=== PATIENT | female | born 1970 ===

== ENCOUNTER 2020-09-25 12:52 | Outpatient (CLI) | payer OTHER ==
--- NOTE | 2020-09-25 14:10 | XRAY Report ---
PROCEDURE: Ankle 3 View LT INDICATIONS: Left ankle joint pain TECHNIQUE: 3 views of the ankle were acquired. COMPARISON: None FINDINGS: Bones: No fracture or dislocation. Ankle mortise is normally aligned. Joint space is maintained and t he ankle. No suspicious lytic or blastic osseous lesion.. Soft tissues: No tibiotalar joint effusion. Achilles tendon appears normal. IMPRESSION: No acute or significant finding to explain pain. MRI may be helpful for further evaluati on. Reviewed by: Jefferson Doe MD on 09/25/2020 2:09 PM PDT Approved by: Jefferson Doe MD on 09/25/2020 2:09 PM PDT Station ID: [id number]
== END 2020-09-25 12:53 | disposition home or self-care (01) ==
LOC: DI.N 12:52
PROVIDERS: ATTEND Physician Assistant
DX: M25.572 Pain in left ankle and joints of left foot (principal)

== ENCOUNTER 2020-11-20 19:56 | Outpatient (CLI) | payer OTHER ==
--- NOTE | 2020-11-21 07:04 | Ultrasound Report ---
PROCEDURE: Ext Limited Non Vascular INDICATIONS: GANGLION RIGHT INDEX FINGER TECHNIQUE: Real-time scanning was performed of the right hand, with image documentation. COMPARISON: None. FINDINGS: There is a cystic structure in the area of patient's clinical concern at the right index f paris measuring up to 3 mm. This does not contain internal or elevated peripheral vascularity, and is noncompressible and there is a small artery immediately adjacent. This represents the site of palpab le tenderness. IMPRESSION: Presumed ganglion cyst right index finger with immediate adjacent small artery, which wh en palpated produces tenderness of current clinical concern. The cyst itself may not be tender but ma y impinge on the adjacent artery to produce the tenderness reported. Reviewed by: Ramírez Weems MD on 11/21/2020 7:03 AM PDT Approved by: Ramírez Weems MD on 11/21/2020 7:03 AM PDT Station ID: [id number]
== END 2020-11-20 19:57 | disposition home or self-care (01) ==
LOC: DI 19:56
PROVIDERS: ATTEND Family Medicine
DX: R93.6 Abnormal findings on diagnostic imaging of limbs (principal)

== ENCOUNTER 2021-09-17 08:00 | Outpatient (CLI) | payer OTHER ==
--- NOTE | 2021-09-17 13:39 | XRAY Report ---
PROCEDURE: Chest 2 View X-Ray INDICATIONS: COUGH TECHNIQUE: 2 view(s) of the chest. COMPARISON: None. FINDINGS: Surgical changes and devices: None. Lungs and pleura: No pleural effusions or pneumothorax. Mild pulmonary radiopacities are present at the lung base. The lungs are otherwise clear. Mediastinum: Mediastinal contours are normal. Heart size is normal. Bones and chest wall: No suspicious bony abnormalities. Soft tissues appear unremarkable. IMPRESSION: Mild right pulmonary radiopacities suggesting atelectasis, aspiration, or infection. Eden rt interval follow-up is recommended to ensure resolution of this finding. Reviewed by: Jaz Rouse MD on 09/17/2021 1:38 PM PDT Approved by: Jaz Rouse MD on 09/17/2021 1:38 PM PDT Station ID: [id number]
== END 2021-09-17 23:59 | disposition home or self-care (01) ==
LOC: DI.N 08:00
PROVIDERS: ATTEND Physician Assistant
DX: R05.9 Cough, unspecified (principal)

== ENCOUNTER 2022-09-06 10:56 | Outpatient (CLI) | payer OTHER ==
--- NOTE | 2022-09-22 09:52 | Mammography Report ---
BILATERAL DIGITAL SCREENING MAMMOGRAM 3D/2D: 09/06/2022 CLINICAL: Family history of breast cancer. Routine screening. No prior exams were available for comparison. There are scattered areas of fibroglandular density in both breasts (category b / 25%-50% glandular t issue). No significant masses, calcifications, or other findings are seen in either breast. Multiple bilater al oval, equal density, circumscribed masses of similar size and appearance are noted. IMPRESSION: NEGATIVE There is no mammographic evidence of malignancy. A 1 year screening mammogram is recommended. Given patient history of elevated lifetime breast cancer risk of approximately 20.4 %, recommend cons ideration for annual screening breast MRI as an adjunct to screening mammography. This is to be offs et by approximately 6 months from patient's mammograms. (Based on Tyrer-Cuzick model (a risk assessment model), the patient's lifetime risk is 20.4% and her 10 year risk is 5.0%. If a patient has an elevated risk, a more comprehensive evaluation should be co nsidered and/or a referral to a genetic counselor. The [place] [employer], [place] [employer], and NCCN Guidelines advise the consideration of Breast MRI as an adjunct to screening mammo graphy in patients whose "Lifetime risk to develop breast cancer" is 20% or higher.) This exam was interpreted at Station ID: [id number]. NOTE: For mammograms, a report in lay terms will be sent to the patient. Approximately 15% of breast malignancies will not be visualized mammographically. In the management of a palpable breast mass, a negative mammogram must not discourage biopsy of a clinically suspicious lesion. Electronically Signed By: David Suarez M.D. aty/:09/21/2022 16:16:56 letter sent: No_Letter ACR BI-RADS Category 1: Negative 3341F PARENCHYMAL PATTERN: (A) - The breast(s) demonstrate(s) scattered fibroglandular densities. BI-RADS CATEGORY: (1) - 1 Mammogram [id number] 1 year screening LATERALITY: (B)
== END 2022-09-06 10:57 | disposition home or self-care (01) ==
LOC: DI.N 10:56
PROVIDERS: ATTEND Family Medicine
DX: Z12.31 Encounter for screening mammogram for malignant neoplasm of breast (principal); Z80.3 Family history of malignant neoplasm of breast

== ENCOUNTER 2023-08-06 13:32 | Outpatient (CLI) | payer OTHER ==
--- NOTE | 2023-08-07 20:14 | Ultrasound Report ---
PROCEDURE: Pelvic w/Transvaginal INDICATIONS: PELVIC PAIN TECHNIQUE: Real-time scanning was performed of the pelvic organs, with image documentation. Additional endovagi nal scanning was necessary due to incomplete visualization of the adnexal and endometrial structures by transabdominal scanning. COMPARISON: None. FINDINGS: Uterus: Uterus is anteverted and normal in size at 7 x 3 x 3.5 cm. The myometrium is heterogeneous. The endometrium measures 1.4 mm in combined thickness. Cystic changes in the lower uterine segment with coarse calcifications. Calcification measures 2 x 1 x 2 mm. Ovaries: The right ovary measures 1.5 x 1.2 x 1.4 cm, with a calculated ovarian volume of 1.2 cc. T he left ovary measures 1.9 x 0.8 x 1.3 cm, with a calculated ovarian volume of 1.0 cc. The ovaries h ave a normal sonographic appearance. Less than 12 follicles can be seen in each ovary. No adnexal m asses are seen. No cystic lesions measuring greater than 3 cm. Other: No pathologic free abdominal or pelvic fluid. IMPRESSION: 1.No sonographic findings to explain patient's pelvic pain. Endometrial thickness measures 1.4 mm. 2.Calcifications in the lower uterine segment likely represent retained blood products. 3.Normal sonographic appearance of the bilateral ovaries. Reviewed by: Kathia Menendez MD on 08/07/2023 8:12 PM PDT Approved by: Kathia Menendez MD on 08/07/2023 8:12 PM PDT Station ID: [id number]
== END 2023-08-06 13:33 | disposition home or self-care (01) ==
LOC: DI 13:32
PROVIDERS: ATTEND Nurse Practitioner
DX: R10.2 Pelvic and perineal pain (principal)